=== PATIENT | male | born 1990 | race Caucasian/White ===

== ENCOUNTER 2019-09-10 00:57 | Emergency (ER) | payer BC ==
[~2019-09-10] VITALS: Ht 180.3 cm; Wt 112.0 kg
[~2019-09-10 00:57] MED LIST: BISA5TAB6 PO; BLVX50T PO; DIAZ5TAB4 PO; DOCU-144 PO; FLUV100C2 PO; HYDR-842 PO; HYDR-845 PO; PRAZ1CAP3 PO; SENN-120 PO
[2019-09-10 00:58] VITALS: Ht 180.3 cm; Wt 112.0 kg
[2019-09-10] MEDS ORDERED: LORAZEPAM 2 MG INJ IM ONE (02:00)
[2019-09-10 05:29] VITALS: BP 144/102; PULSE 98; RESP 16
== END 2019-09-10 05:29 | disposition home or self-care (01) ==
LOC: E/R 00:57 → EDSEX 00:57 → E/R 05:29
DX: F41.9 Anxiety disorder, unspecified (principal); R40.2142 Coma scale, eyes open, spontaneous, at arrival to emergency department; R40.2362 Coma scale, best motor response, obeys commands, at arrival to emergency department; R40.2252 Coma scale, best verbal response, oriented, at arrival to emergency department
CPT/HCPCS: 96372; 99284; J2060